=== PATIENT | female | born 1985 | race Caucasian/White ===

== ENCOUNTER 2016-08-20 22:37 | Emergency (ER) | payer OTHER ==
[~2016-08-20] VITALS: Ht 160 cm; Wt 91.9 kg
[~2016-08-20 22:37] MED LIST: ABILIFY5 MG PO; ADDERALL XR 2020 MG PO; ALLEGRA-D 241 TABLET PO; ALLERGY SHOT; ALLERGY SHOTS IM; AMBIEN10 MG PO; AMBIEN5 MG PO; AZITHROMYCIN250 MG PO; BACTRIM,SEPT1 TABLET PO; BEYAZ 28 TABLE1 EACH PO; BIRTH CONTROL PILL PO; CIPRO500 MG PO; CLONAZEPAM0.25 MG PO; COLACE100 MG PO; CRYSELLE1 EACH PO; DOXEPIN HCL10 MG PO; DURICEF500 MG PO; EFFEXOR XR37.5 MG PO; EFFEXOR XR75 MG PO; ESCITALOPRAM OX20 MG PO; FIORICET,ESG1 TABLET PO; FLEXERIL10 MG PO; FLEXERIL5 MG PO; FLOMAX0.4 MG PO; IBUPROFEN800 MG PO; KEFLEX500 MG PO; KLONOPIN0.5 M1 PO; LEXAPRO20 MG PO; LORTAB 5-325 M1 EACH PO; MACROBID100 MG PO; MELOXICAM7.5 MG PO; MOTRIN600 MG PO; MOTRIN800 MG PO; NAPROSYN500 MG PO; NORCO 5/3251 TABLET PO; PATANASE30.5 GM BOTH NARES; PEPCID20 MG PO; PERCOCET 5/31 TABLET PO; PREDNISONE20 MG PO; PROBIOTIC1 EAC1 PO; PROMETHAZINE HC25 M1 PO; PYRIDIUM100 MG PO; PYRIDIUM200 MG PO; REGLAN10 MG PO; TESSALON PERLE100 MG PO; TORADOL10 MG PO; TRAMADOL HCL50 MG PO; WELLBUTRIN SR150 MG PO; ZANTAC150 MG PO; ZOFRAN4 MG PO; ZOLPIDEM TARTRAT5 MG PO; ZYRTEC10 M1 PO; ZYRTEC10 M2 PO; ZYRTEC10 M3 PO; [UNRECOGNIZED DRUG - REMARK]; [UNRECOGNIZED DRUG - REMARK]; abilify PO; ambien
[2016-08-21 00:23] LABS: BILIRUBIN NEGATIVE; BLOOD NEGATIVE; COLOR YELLOW ((YELLOW)); GLUCOSE (STRIP) NEGATIVE; KETONES NEGATIVE; LEUKOCYTES NEGATIVE; NITRITE NEGATIVE; PROTEIN (STRIP) 30; UROBILINOGEN 0.2 MG/DL (0.2-1.0)
[2016-08-21] MEDS ORDERED: CEFDINIR300 MG PO (00:23)
[2016-08-21] MEDS ORDERED: NAPROSYN500 MG PO (00:23)
[2016-08-21 00:24] LABS: ADD MIUA? NO
[2016-08-21 00:41] VITALS: BP 109/68
== END 2016-08-21 00:43 | disposition home or self-care (01) ==
LOC: EME 22:37
PROVIDERS: Physician Assistant
DX: R33.9 Retention of urine, unspecified (principal); H66.41 Suppurative otitis media, unspecified, right ear; Z87.442 Personal history of urinary calculi; F32.9 Major depressive disorder, single episode, unspecified; Z88.0 Allergy status to penicillin; Z88.1 Allergy status to other antibiotic agents
CPT/HCPCS: 81003; 99281; 99283

== ENCOUNTER 2017-02-07 09:01 | Emergency (ER) | payer OTHER ==
[~2017-02-07] VITALS: Ht 160 cm; Wt 87.0 kg
[~2017-02-07 09:01] MED LIST changes: +CEFDINIR300 MG PO
[2017-02-07 09:04] VITALS: BP 113/75
[2017-02-07] MEDS ORDERED: ZITHROMAX Z-PA250 MG PO (10:31)
[2017-02-07] MEDS ORDERED: TETCAINE15 ML BOTH EARS (10:31)
== END 2017-02-07 10:55 | disposition home or self-care (01) ==
LOC: EME 09:01
DX: H66.001 Acute suppurative otitis media without spontaneous rupture of ear drum, right ear (principal)
CPT/HCPCS: 99281; 99284